=== PATIENT | male | born 1940 | race Caucasian/White ===

== ENCOUNTER 2017-07-25 11:14 | Emergency (ER) | payer MEDICARE, OTHER ==
[~2017-07-25] VITALS: Ht 172.7 cm; Wt 84.2 kg
[2017-07-25 11:49] VITALS: BP 155/86
[2017-07-25] MEDS ORDERED: BUPIVAcaine/PF 2.5 mg/ml (0.25%) 30ml vial IJ ONE (12:40)
[2017-07-25] MEDS ORDERED: TETanus/Pertussis (Acell)/Diphther VAC/PF (Tdap-Adult) 0.5ml syringe IM ONE (12:40)
[2017-07-25] MEDS ORDERED: cephalexin 500mg capsule PO ONE (13:15)
[2017-07-25] MEDS ORDERED: CEPH-572 PO (13:22)
== END 2017-07-25 13:33 | disposition home or self-care (01) ==
LOC: ER 11:16
DX: S61.411A Laceration without foreign body of right hand, initial encounter (principal); W31.89XA Contact with other specified machinery, initial encounter; Y93.89 Activity, other specified; Y92.89 Other specified places as the place of occurrence of the external cause; Y99.8 Other external cause status
CPT/HCPCS: 12042; 90471; 90715; 99284; A6449; J3490